=== PATIENT | male | born 1985 | race Caucasian/White ===

== ENCOUNTER 2016-06-19 03:06 | Emergency (ER) | payer SELFPAY ==
[~2016-06-19] VITALS: Ht 172.7 cm; Wt 78.0 kg
[~2016-06-19 03:06] MED LIST: METH10CO3 PO
[2016-06-19] MEDS ORDERED: METH10CO3 PO (03:19)
--- NOTE | 2016-06-19 03:26 | PD ---
HPI Chief Complaint: Psychiatric Symptoms Time Seen by Provider: 03:21 Travel History International Travel<30 days: No Contact w/Intl Traveler<30days: No Traveled to known affect area: No History of Present Illness HPI Patient comes in under a Gavin act by police for cutting his left forearm with a razor reports he is withdrawing from opiates. Patient states he's been off methadone for approximately 20 days. Patient reports that he drank beer and whiskey as well as smoked weed kathleen. Patient states he drinks on a daily basis. Patient reports that he got into an argument with his brother kathleen and was cutting himself secondary to going through opiate withdrawal. Patient reports his tetanus shot is up to date. Denies any chest pain, shortness of breath, fevers, numbness or tingling, or homicidal ideations ideations. Patient is requesting Valium as well as to smoke a cigarette. PFSH Past Medical History Diminished Hearing: No Hepatitis: Yes (C) Social History Alcohol Use: No Tobacco Use: No Substance Use: No Allergies-Medications (Allergen,Severity, Reaction): Coded Allergies: No Known Allergies (Verified , 06/19/16) Reported Meds & Prescriptions Reported Meds & Active Scripts Active Reported Methadone Intensol Liq (Methadone HCl) 10 Mg/Ml Conc 220 Mg PO DAILY Review of Systems ROS Limitations: Intoxication Except as stated in HPI: all other systems reviewed are Neg Physical Exam Exam Limitations: Intoxication Narrative GENERAL: Well-developed, well nourished, in no acute distress, and non-ill appearing. SKIN: Warm and dry. Multiple superficial lacerations noted left forearm volar surface. They are non-gaping and nonrepairable. Patient is full range of motion distally and is neurovascularly intact distally to the wound. HEAD: Atraumatic. Normocephalic. EYES: Pupils equal and round. EOMI. No scleral icterus. No injection or drainage. ENT: No nasal bleeding or discharge. Mucous membranes pink and moist. NECK: Trachea midline. Supple. No nuclear rigidity. CARDIOVASCULAR: Regular rate and rhythm. No murmur appreciated. RESPIRATORY: No accessory muscle use. No respiratory distress. Clear to auscultation. Breath sounds equal bilaterally. GASTROINTESTINAL: Abdomen soft, non-tender, nondistended. Hepatic and splenic margins not palpable. Normal bowel sounds 4. No pulsatile mass. MUSCULOSKELETAL: No obvious deformities. No clubbing. No cyanosis. No edema. Full range of motion. NEUROLOGICAL: Awake and alert. No obvious cranial nerve deficits. Motor grossly within normal limits. Slurred speech. PSYCHIATRIC: Insight and judgment abnormal. Data Data Last Documented VS Vital Signs Date Time Temp Pulse Resp B/P Pulse Ox O2 Delivery O2 Flow Rate FiO2 06/19/16 03:28 98.8 83 14 114/72 99 Room Air Orders Complete Blood Count With Diff (06/19/16 03:18) Comprehensive Metabolic Panel (06/19/16 03:18) Psych Screen (06/19/16 03:18) Drug Screen, Random Urine (06/19/16 03:18) Alcohol (Ethanol) (06/19/16 03:18) Salicylates (Aspirin) (06/19/16 03:18) Tylenol (Acetaminophen) (06/19/16 03:18) Wound Care (06/19/16 03:18) Nicotine 21 Mg Patch.24 Hr (Habitrol 21 (06/19/16 03:30) Labs Laboratory Tests Test 06/19/16 06/19/16 03:52 03:55 White Blood Count 9.4 TH/MM3 Red Blood Count 4.17 MIL/MM3 Hemoglobin 13.3 GM/DL Hematocrit 38.6 % Mean Corpuscular Volume 92.6 FL Mean Corpuscular Hemoglobin 31.8 PG Mean Corpuscular Hemoglobin 34.3 % Concent Red Cell Distribution Width 12.7 % Platelet Count 249 TH/MM3 Mean Platelet Volume 7.8 FL Neutrophils (%) (Auto) 58.4 % Lymphocytes (%) (Auto) 33.7 % Monocytes (%) (Auto) 6.2 % Eosinophils (%) (Auto) 0.6 % Basophils (%) (Auto) 1.1 % Neutrophils # (Auto) 5.5 TH/MM3 Lymphocytes # (Auto) 3.2 TH/MM3 Monocytes # (Auto) 0.6 TH/MM3 Eosinophils # (Auto) 0.1 TH/MM3 Basophils # (Auto) 0.1 TH/MM3 CBC Comment DIFF FINAL Differential Comment Sodium Level 142 MEQ/L Potassium Level 3.9 MEQ/L Chloride Level 104 MEQ/L Carbon Dioxide Level 27.3 MEQ/L Anion Gap 11 MEQ/L Blood Urea Nitrogen 11 MG/DL Creatinine 0.98 MG/DL Estimat Glomerular Filtration 90 ML/MIN Rate Random Glucose 78 MG/DL Calcium Level 9.0 MG/DL Total Bilirubin 0.6 MG/DL Aspartate Amino Transf 43 U/L (AST/SGOT) Alanine Aminotransferase 64 U/L (ALT/SGPT) Alkaline Phosphatase 92 U/L Total Protein 7.6 GM/DL Albumin 4.2 GM/DL Salicylates Level 3.1 MG/DL Acetaminophen Level LESS THAN 2.0 MCG/ML Ethyl Alcohol Level 30 MG/DL Urine Opiates Screen NEG Urine Barbiturates Screen NEG Urine Amphetamines Screen NEG Urine Benzodiazepines Screen POS Urine Cocaine Screen POS Urine Cannabinoids Screen NEG MDM Medical Decision Making Medical Screen Exam Complete: Yes Emergency Medical Condition: Yes Differential Diagnosis Alcohol intoxication, homicidal, suicidal, drug abuse, mood disorder, abrasion, laceration, other Narrative Course The wounds are very superficial and nonrepairable. There was no evidence to suggest foreign bodies. Visual and tactile exams were unremarkable. There was no evidence of neurovascular injury as well. The patients wounds were cleaned and dressed. The patient was given signs and symptom warnings for infection, such as increasing pain, redness, swelling, associated heat, pus or fever. The patient was given instructions for timely follow up. The patient agreed with plan of care. Patient was seen and examined. Labs were obtained and reviewed. Patient medically cleared for further treatment and evaluation by psych. Final disposition per psych. Diagnosis Primary Impression: Substance abuse Additional Impression: Self-inflicted injury Patient Instructions: Acute Wound Care (ED), General Instructions Additional Instructions: Keep wound dry and clean as possible using soap and water. Use Neosporin to promote healing. Condition: Stable Milton Garibay Jun 19, 2016 03:26
[2016-06-19 03:28] VITALS: BP 114/72; PULSE 83; RESP 14; TEMP 98.8; O2SAT 99
[2016-06-19] MEDS ORDERED: NICOTINE 21 MG/24 HR PATCH TD ONE (03:30)
[2016-06-19 04:13] LABS: AUTOMATED NEUTROPHIL # 5.5 TH/MM3 (1.8-7.7); BASOPHIL # 0.1 TH/MM3 (0-0.2); BASOPHIL % 1.1 % (0.0-2.0); EOSINOPHIL # 0.1 TH/MM3 (0-0.4); EOSINOPHIL % 0.6 % (0.0-4.0); HEMATOCRIT 38.6 % (39.0-51.0); HEMO FLAGS DIFF FINAL; LYMPH % 33.7 % (9.0-44.0); LYMPHOCYTE # 3.2 TH/MM3 (1.0-4.8); MEAN CELL VOLUME 92.6 FL (80.0-100.0); MEAN CORPUSCULAR HEMOGLOBIN 31.8 PG (27.0-34.0); MEAN CORPUSCULAR HGB CONC 34.3 % (32.0-36.0); MONO % 6.2 % (0.0-8.0); NEUT % 58.4 % (16.0-70.0); PLATELET COUNT 249 TH/MM3 (150-450); RED BLOOD COUNT 4.17 MIL/MM3 (4.50-5.90); RED CELL DISTRIBUTION WIDTH 12.7 % (11.6-17.2); WHITE BLOOD COUNT 9.4 TH/MM3 (4.0-11.0)
[2016-06-19 04:19] LABS: BARBITURATES, URINE NEG (NEG)
[2016-06-19 04:22] LABS: AMPHETAMINE, URINE NEG (NEG); COCAINE, URINE POS (NEG)
[2016-06-19 04:34] LABS: ANION GAP 11 MEQ/L (5-15); AST (GOT) 43 U/L (15-37); BICARBONATE 27.3 MEQ/L (21.0-32.0); BLOOD UREA NITROGEN 11 MG/DL (7-18); CHLORIDE 104 MEQ/L (98-107); GLOMERULAR FILTRATION RATE 90 ML/MIN (>89); POTASSIUM 3.9 MEQ/L (3.5-5.1); SODIUM (NA) 142 MEQ/L (136-145)
[2016-06-19 04:36] LABS: ACETAMINOPHEN LESS THAN 2.0 MCG/ML (10.0-30.0); ALKALINE PHOSPHATASE 92 U/L (45-117); ALT (GPT) 64 U/L (12-78); TOTAL BILIRUBIN ADULT 0.6 MG/DL (0.2-1.0)
[2016-06-19 06:43] VITALS: BP 103/59; PULSE 77; RESP 18; TEMP 97.4; O2SAT 97
[2016-06-19] MEDS ORDERED: LORazepam 2 MG TAB PO PRN ×2 (09:30→10:00)
[2016-06-19] MEDS ORDERED: LORazepam 1 MG TAB PO PRN ×2 (09:30→10:00)
[2016-06-19] MEDS ORDERED: LORazepam 2 MG/ML VIAL IV PUSH PRN ×8 (09:30→10:00)
[2016-06-19] MEDS ORDERED: HALOPERIDOL LACTATE 5 MG/ML AMP IM PRN (10:00)
[2016-06-19 18:40] VITALS: BP 130/80; PULSE 65
[2016-06-19 22:23] VITALS: BP 110/59; PULSE 75; RESP 18
== END 2016-06-20 00:18 ==
LOC: NEPB 03:06 → NEPJ 06-20 00:18
DX: F19.10 Other psychoactive substance abuse, uncomplicated (principal); S51.812A Laceration without foreign body of left forearm, initial encounter; Z86.19 Personal history of other infectious and parasitic diseases; X78.9XXA Intentional self-harm by unspecified sharp object, initial encounter
CPT/HCPCS: 80053; 80307; 85025; 99284

== ENCOUNTER 2017-06-04 00:44 | Emergency (ER) | payer OTHER ==
[~2017-06-04] VITALS: Ht 172.7 cm; Wt 55.0 kg
[2017-06-04 02:27] VITALS: BP 127/80; PULSE 82; RESP 16; TEMP 98.2; O2SAT 100
--- NOTE | 2017-06-04 02:31 | PD ---
HPI Chief Complaint: Medical clearance Time Seen by Provider: 02:23 Travel History International Travel<30 days: No Contact w/Intl Traveler<30days: No Traveled to known affect area: No History of Present Illness HPI 32-year-old right-hand dominant white male presents emergency department in police custody for medical clearance to go to intermediate. The patient had sustained a laceration to his left index finger. Patient denies any numbness or tingling. He states that he had cut it on glass. He is up-to-date with immunizations. Pain is minimal. No alleviating factors. No exacerbating factors. PFSH Past Medical History Narrative Medical Chronic substance abuse on methadone Diminished Hearing: No Hepatitis: Yes (C) Tetanus Vaccination: < 5 Years Past Surgical History Surgical History: No Previous Surgery Social History Alcohol Use: Yes (Daily 18 beers plus whiskey) Tobacco Use: Yes (2 ppd) Substance Use: Yes (18BEERS+1/5WHISKEY DAILY, /12 PPD CIGARETTES) Allergies-Medications (Allergen,Severity, Reaction): Coded Allergies: No Known Allergies (Verified , 06/19/16) Reported Meds & Prescriptions Reported Meds & Active Scripts Active Reported Methadone Intensol Liq (Methadone HCl) 10 Mg/Ml Conc 220 Mg PO DAILY Review of Systems Except as stated in HPI: all other systems reviewed are Neg Physical Exam Narrative GENERAL: This is a well-nourished, well-developed patient, in no apparent distress. SKIN: No rashes, ecchymoses or lesions. Warm and dry. HEAD: Atraumatic. Normocephalic. EYES: PERRL, EOMI, no discharge or injection. No scleral icterus. EARS: Clear NOSE: Nasal turbinates appear normal. THROAT: Mucosa pink and moist. Airway patent. NECK: Trachea midline. supple, moves head freely. LUNGS: Clear to auscultation. CV: Regular in rhythm. ABDOMEN: Soft nontender. EXT: No clubbing cyanosis or edema. Patient has a 2.5 cm laceration to the left index finger over the mid phalanx distal third. Patient has intact sensation and good distal pulses. Good strength. Full range of motion. No gross foreign body. Data Data Last Documented VS Vital Signs Date Time Temp Pulse Resp B/P (MAP) Pulse Ox O2 Delivery O2 Flow Rate FiO2 06/04/17 02:27 98.2 82 16 127/80 96 100 [facility] Medical Decision Making Medical Screen Exam Complete: Yes Emergency Medical Condition: Yes Medical Record Reviewed: Yes Differential Diagnosis MDM: High Differential diagnoses: Fracture, sprain, strain, dislocation, contusion, neurovascular injury Narrative Course Patient's lacerations closed with sutures. Patient is medically cleared to go to intermediate. Procedures Procedure Narrative LACERATION LOCATION: Left index finger middle phalanx LENGTH: 2.5 cm . NUMBER OF STITCHES/MARCELLE: 6 REPAIR: The area of the laceration was prepped with Betadine and sterilely draped. The laceration was infiltrated with 1% lidocaine digital block. The wound was copiously irrigated and explored without evidence of foreign body,or neurovascular injury. The wound revealed approximately 20% extensor tendon laceration. The wound was closed using 5-0 Prolene. This was a simple single layer repair. A sterile dressing was applied. The patient was advised to keep the dressing clean and dry. Patient tolerated the procedure well. Diagnosis Primary Impression: Left index finger laceration Additional Impression: Medical clearance for incarceration Patient Instructions: General Instructions Additional Instructions: Rest. Elevation. Keep clean and dry. Daily wound care with soap, water, Neosporin. Tylenol and Advil for pain. Sutures out in 14 days. Return to the ER for any problems. Med/Other Pt SpecificInfo: Wound Care Disposition: [address] LAW ENFORCEMNT Condition: Stable Kyler Burton Jun 04, 2017 02:31
== END 2017-06-04 03:30 ==
LOC: NEPD 00:44
DX: S61.211A Laceration without foreign body of left index finger without damage to nail, initial encounter (principal); F17.200 Nicotine dependence, unspecified, uncomplicated; W25.XXXA Contact with sharp glass, initial encounter; Z79.899 Other long term (current) drug therapy; Z86.19 Personal history of other infectious and parasitic diseases
CPT/HCPCS: 12001